=== PATIENT | male | born 1940 | race Caucasian/White ===

== ENCOUNTER 2017-10-21 09:18 | Inpatient (IN) | payer OTHER ==
[2017-10-21] MEDS ORDERED: SODIUM CHLORIDE 0.9% FLUSH 10 ML SOL IV PRN (09:23)
[2017-10-21 09:32] LABS: BASOPHILS % (AUTO) 1 % (0-3); EOSINOPHILS % (AUTO) 4 % (0-9); HEMATOCRIT 43 % (39-53); LYMPHOCYTES % (AUTO) 12.77 % (10-50); MEAN CORPUSCULAR HGB CONC 32.7 gm/dl (32.0-36.0); MEAN CORPUSCULAR VOLUME 98 fL (80-100); MONOCYTES % (AUTO) 7.1 % (0-12); NEUTROPHILS % (AUTO) 74.9 % (37-80)
[2017-10-21 09:37] LABS: CALCIUM 8.6 mg/dl (8.5-10.1); CARBON DIOXIDE 29.4 mEq/L (21-32); CREATININE 1.4 mg/dl (0.80-1.30); POTASSIUM 4.1 mMol/L (3.5-5.1)
[2017-10-21 09:47] LABS: ABG PH 7.4 (7.35-7.45)
[2017-10-21 13:07] LABS: ABG PH 7.35 (7.35-7.45)
[2017-10-21] MEDS ORDERED: SODIUM CHLORIDE 0.9% 1000ML 1,000 ML IV SCH (13:15)
[2017-10-21 14:15] LABS: ABG PH 7.42 (7.35-7.45)
[2017-10-21 15:27] LABS: ABG PH 7.4 (7.35-7.45)
[2017-10-21] MEDS: BUDESONIDE 0.5 MG/2 ML AMPUL.NEB INH SCH (20:13)
[2017-10-21] MEDS: ALBUTEROL/IPRATROPIUM 1 VIAL SOL INH SCH (20:20)
[2017-10-21] MEDS: SODIUM CHLORIDE 0.9% 1000ML 1,000 ML IV SCH (23:10)
[2017-10-22] MEDS ORDERED: ACETAMINOPHEN 325 MG PO PRN (00:10)
[2017-10-22 07:18] LABS: CALCIUM 8.3 mg/dl (8.5-10.1); CREATININE 1.24 mg/dl (0.80-1.30); POTASSIUM 3.9 mMol/L (3.5-5.1)
[2017-10-22 07:27] LABS: BASOPHILS % (AUTO) 1 % (0-3); EOSINOPHILS % (AUTO) 1 % (0-9); HEMATOCRIT 42 % (39-53); HEMOGLOBIN 13.5 gm/dl (13.5-17.7); MEAN CORPUSCULAR HGB CONC 32.5 gm/dl (32.0-36.0); MONOCYTES % (AUTO) 6.4 % (0-12)
[2017-10-22 07:29] LABS: MEAN CORPUSCULAR VOLUME 99 fL (80-100)
[2017-10-22] MEDS: SODIUM CHLORIDE 0.9% 1000ML 1,000 ML IV SCH (07:56)
[2017-10-22] MEDS: BUDESONIDE 0.5 MG/2 ML AMPUL.NEB INH SCH ×2 (09:00→20:13)
[2017-10-22] MEDS: ALBUTEROL/IPRATROPIUM 1 VIAL SOL INH SCH ×2 (09:17→20:17)
[2017-10-22] MEDS: GLIMEPIRIDE 2 MG TAB PO SCH (09:38)
[2017-10-22] MEDS: DIVALPROEX 250 MG TAB.ER.24H PO SCH (09:38)
[2017-10-22] MEDS: MONTELUKAST SODIUM 10 MG TAB PO SCH (09:38)
[2017-10-23 08:07] VITALS: BP 154/81; RESP 18
[2017-10-23 09:21] VITALS: TEMP 97.7
[2017-10-23] MEDS: GLIMEPIRIDE 2 MG TAB PO SCH (09:44)
[2017-10-23] MEDS: ALBUTEROL/IPRATROPIUM 1 VIAL SOL INH SCH (09:44)
[2017-10-23] MEDS: MONTELUKAST SODIUM 10 MG TAB PO SCH (09:44)
[2017-10-23] MEDS: DIVALPROEX 250 MG TAB.ER.24H PO SCH (09:44)
[2017-10-23] MEDS: BUDESONIDE 0.5 MG/2 ML AMPUL.NEB INH SCH (09:58)
[2017-10-23 10:10] VITALS: PULSE 74; O2SAT 95
== END 2017-10-23 11:15 | disposition home or self-care (01) | DRG 918 ==
LOC: ED 09:18 → ACUTE CARE 11:44 → OBSVTOIN 12:45
PROVIDERS: ADMIT Family Medicine; ATTEND Family Medicine
PROC: F00ZHZZ Bedside Swallowing and Oral Function Assessment (ICD-10-PCS; principal; 2017-10-23)
DX: R47.81 Slurred speech (principal); T42.6X1A Poisoning by other antiepileptic and sedative-hypnotic drugs, accidental (unintentional), initial encounter; R41.82 Altered mental status, unspecified; R40.2132 Coma scale, eyes open, to sound, at arrival to emergency department; R40.2362 Coma scale, best motor response, obeys commands, at arrival to emergency department; I10 Essential (primary) hypertension; E11.9 Type 2 diabetes mellitus without complications
CPT/HCPCS: 36415; 36600; 51798; 70450; 80048; 82803; 82962; 85025; 85610; 93005; 93012; 94640; 94762; 99283; 99284; A9270-GY

== ENCOUNTER 2018-09-01 10:57 | Inpatient (IN) | payer MEDICARE, OTHER ==
[2018-09-01 11:37] LABS: BASOPHILS % (AUTO) 1 % (0-3); EOSINOPHILS % (AUTO) 0 % (0-9); HEMATOCRIT 36 % (39-53); HEMOGLOBIN 11.9 gm/dl (13.5-17.7); LYMPHOCYTES % (AUTO) 3.9 % (10-50); MEAN CORPUSCULAR HEMOGLOBIN 31.7 pg (27.0-32.0); MEAN CORPUSCULAR HGB CONC 33.1 gm/dl (32.0-36.0); MEAN CORPUSCULAR VOLUME 96 fL (80-100); MONOCYTES % (AUTO) 8.1 % (0-12); NEUTROPHILS % (AUTO) 87.2 % (37-80)
[2018-09-01 11:59] LABS: ALBUMIN 2.3 gm/dl (3.4-5.0); ALKALINE PHOSPHATASE 106 IU/L (46-116); ALT 25 IU/L (14-63); AST 21 IU/L (15-37); BILIRUBIN,TOTAL 0.4 mg/dl (0.2-1.0); BLOOD UREA NITROGEN 35 mg/dl (7-18); CALCIUM 8.9 mg/dl (8.5-10.1); CARBON DIOXIDE 27.7 mEq/L (21-32); CHLORIDE 101 mMol/L (98-107); CREATININE 1.43 mg/dl (0.80-1.30); GLUCOSE 131 mg/dl (74-106); POTASSIUM 4.3 mMol/L (3.5-5.1); SODIUM 138 mMol/L (136-145); TROP I < 0.017 ng/ml (0.000-0.056)
[2018-09-01] MEDS ORDERED: ALBUTEROL/IPRATROPIUM 1 VIAL SOL INH ONE (12:31)
[2018-09-01] MEDS ORDERED: PIPERACILLIN/TAZOBACT 3.375 GM 3.375 GM in SODIUM CHLORIDE 0.9% 100 ML 100 ML IV ONE (12:31)
[2018-09-01] MEDS ORDERED: PIPERACILLIN/TAZOBACT 3.375 GM PDS IV ONE ×2 (12:41→21:07)
[2018-09-01] MEDS ORDERED: ALBUTEROL/IPRATROPIUM 1 VIAL SOL ONE (12:42)
[2018-09-01] MEDS ORDERED: TDAP VACCINE 0.5 ML SUS IM ONE ×2 (12:52→13:06)
[2018-09-01] MEDS ORDERED: ALBUTEROL NEB SOL 2.5MG/3ML 1 VIAL SOL NEB PRN (20:52)
[2018-09-01] MEDS ORDERED: NUTRITIONAL SUPPLEMENT PO SCH (21:00)
[2018-09-01] MEDS ORDERED: VANCOMYCIN HYDROCHLORIDE 500 MG PDS IV ONE (21:07)
[2018-09-01] MEDS ORDERED: SODIUM CHLORIDE 0.9% 100 ML 100 ML IV ONE (21:07)
[2018-09-01] MEDS: SODIUM CHLORIDE 0.9% FLUSH 10 ML SOL IV SCH (21:29)
[2018-09-01] MEDS: PIPERACILLIN/TAZOBACT 3.375 GM 3.375 GM in SODIUM CHLORIDE 0.9% 100 ML 100 ML IV SCH (21:29)
[2018-09-01] MEDS: ALBUTEROL/IPRATROPIUM 1 VIAL SOL INH SCH (21:32)
[2018-09-01] MEDS: ACETAMINOPHEN 500 MG 500 MG TAB PO SCH (21:32)
[2018-09-01] MEDS: BUDESONIDE 0.5 MG/2 ML AMPUL.NEB IH SCH (21:38)
[2018-09-01] MEDS: VANCOMYCIN HCL 500 MG PDS 500 MG in SODIUM CHLORIDE 0.9% 100 ML 100 ML IV SCH (22:05)
[2018-09-02 01:57] LABS: APPEARANCE,URINE Slightly Cloudy; BILIRUBIN,URINE 1+ (NEGATIVE); COLOR,URINE Yellow; GLUCOSE, URINE (UA) NEGATIVE (NEGATIVE); KETONES,URINE TRACE (NEGATIVE); LEUKOCYTE ESTERASE ,URINE NEGATIVE (NEGATIVE); NITRATE,URINE NEGATIVE (NEGATIVE); OCCULT BLOOD,URINE TRACE INTACT (NEG-TRACE); PH,URINE 5.5; UROBILINOGEN,URINE 0.2 (0.2-1.0 EU)
[2018-09-02 02:10] LABS: BACTERIA NEGATIVE (< 1+); CRYSTALS NEGATIVE (0-3 AVE/HPF); EPITHELIAL CELLS 0-3 (SQUAMOUS); ICTOTEST,URINE NEGATIVE (NEGATIVE); RBC,URINE 0-1 (0-3AV/HPF); WBC,URINE 0-1 (0-5AV/HPF)
[2018-09-02] MEDS ORDERED: PIPERACILLIN/TAZOBACT 3.375 GM PDS IV ONE ×4 (02:54→21:40)
[2018-09-02] MEDS ORDERED: SODIUM CHLORIDE 0.9% 100 ML 100 ML IV ONE ×6 (02:54→22:20)
[2018-09-02] MEDS: ALBUTEROL/IPRATROPIUM 1 VIAL SOL INH SCH ×4 (03:20→21:51)
[2018-09-02] MEDS: PIPERACILLIN/TAZOBACT 3.375 GM 3.375 GM in SODIUM CHLORIDE 0.9% 100 ML 100 ML IV SCH ×4 (03:20→21:49)
[2018-09-02] MEDS: SODIUM CHLORIDE 0.9% FLUSH 10 ML SOL IV SCH ×3 (03:20→21:51)
[2018-09-02] MEDS ORDERED: PHARMACOKINETICS 1 MISC PRN (05:04)
[2018-09-02 07:22] LABS: BASOPHILS % (AUTO) 2 % (0-3); EOSINOPHILS % (AUTO) 1 % (0-9); HEMATOCRIT 36 % (39-53); HEMOGLOBIN 11.8 gm/dl (13.5-17.7); MEAN CORPUSCULAR HEMOGLOBIN 32.2 pg (27.0-32.0); MEAN CORPUSCULAR HGB CONC 33.2 gm/dl (32.0-36.0); MEAN CORPUSCULAR VOLUME 97 fL (80-100); MONOCYTES % (AUTO) 8.2 % (0-12); NEUTROPHILS % (AUTO) 82.7 % (37-80)
[2018-09-02 07:33] LABS: BLOOD UREA NITROGEN 39 mg/dl (7-18); CALCIUM 8.9 mg/dl (8.5-10.1); CARBON DIOXIDE 32.6 mEq/L (21-32); CHLORIDE 102 mMol/L (98-107); GLUCOSE 136 mg/dl (74-106); POTASSIUM 4.4 mMol/L (3.5-5.1); SODIUM 140 mMol/L (136-145); TROP I < 0.017 ng/ml (0.000-0.056)
[2018-09-02] MEDS ORDERED: Non-Formulary Medication MISC (Divalproex Sodium 1,000 mg) PO SCH (09:00)
[2018-09-02] MEDS ORDERED: FLUTICASONE PROPIONATE INH SCH (09:00)
[2018-09-02] MEDS ORDERED: OMEPRAZOLE 20 MG CAPSULE PO SCH (09:00)
[2018-09-02] MEDS ORDERED: VANCOMYCIN HYDROCHLORIDE 500 MG PDS IV ONE ×2 (09:03→22:20)
[2018-09-02] MEDS: ACETAMINOPHEN 500 MG 500 MG TAB PO SCH ×2 (09:06→21:50)
[2018-09-02] MEDS: FLUOXETINE HYDROCHLORIDE 10 MG CAP PO SCH (09:07)
[2018-09-02] MEDS: HYDROCHLOROTHIAZIDE 25 MG TAB PO SCH (09:07)
[2018-09-02] MEDS: LOSARTAN POTASSIUM 50 MG TAB PO SCH (09:07)
[2018-09-02] MEDS: DOCUSATE SODIUM 100 MG SGL PO SCH (09:07)
[2018-09-02] MEDS: PRAVASTATIN SODIUM 20 MG TAB PO SCH (09:07)
[2018-09-02] MEDS: MONTELUKAST SODIUM 10 MG TAB PO SCH (09:07)
[2018-09-02] MEDS: PANTOPRAZOLE SODIUM 40 MG ECT PO SCH (09:07)
[2018-09-02] MEDS: TAMSULOSIN HYDROCHLORIDE 0.4 MG CAP PO SCH (09:07)
[2018-09-02] MEDS: GLIMEPIRIDE 2 MG TAB PO SCH (09:07)
[2018-09-02] MEDS: ENOXAPARIN 80 MG SOL SC SCH (09:08)
[2018-09-02] MEDS: VANCOMYCIN HCL 500 MG PDS 500 MG in SODIUM CHLORIDE 0.9% 100 ML 100 ML IV SCH ×2 (10:00→22:28)
[2018-09-02] MEDS: BUDESONIDE 0.5 MG/2 ML AMPUL.NEB IH SCH ×2 (10:00→21:49)
[2018-09-02] MEDS: DIVALPROEX 250 MG TAB.ER.24H PO SCH (10:48)
[2018-09-02] MEDS: DUTASTERIDE 0.5 MG SGL PO SCH (10:48)
[2018-09-02] MEDS: FLUTICASONE PROPIONATE SPR NAS SCH (14:12)
[2018-09-03] MEDS ORDERED: SODIUM CHLORIDE 0.9% 100 ML 100 ML IV ONE ×6 (03:07→16:11)
[2018-09-03] MEDS ORDERED: PIPERACILLIN/TAZOBACT 3.375 GM PDS IV ONE ×4 (03:07→16:09)
[2018-09-03] MEDS: ALBUTEROL/IPRATROPIUM 1 VIAL SOL INH SCH ×4 (03:15→20:19)
[2018-09-03] MEDS: SODIUM CHLORIDE 0.9% FLUSH 10 ML SOL IV SCH ×7 (03:17→20:25)
[2018-09-03] MEDS: PIPERACILLIN/TAZOBACT 3.375 GM 3.375 GM in SODIUM CHLORIDE 0.9% 100 ML 100 ML IV SCH ×4 (03:19→20:24)
[2018-09-03 07:19] LABS: CALCIUM 8.5 mg/dl (8.5-10.1); CARBON DIOXIDE 28.3 mEq/L (21-32); CREATININE 1.52 mg/dl (0.80-1.30); POTASSIUM 3.8 mMol/L (3.5-5.1)
[2018-09-03 07:30] LABS: BASOPHILS % (AUTO) 1 % (0-3); EOSINOPHILS % (AUTO) 1 % (0-9); HEMATOCRIT 33 % (39-53); HEMOGLOBIN 10.9 gm/dl (13.5-17.7); LYMPHOCYTES % (AUTO) 4.8 % (10-50); MEAN CORPUSCULAR HEMOGLOBIN 31.9 pg (27.0-32.0); MEAN CORPUSCULAR HGB CONC 32.8 gm/dl (32.0-36.0); MEAN CORPUSCULAR VOLUME 97 fL (80-100); MONOCYTES % (AUTO) 8.8 % (0-12); NEUTROPHILS % (AUTO) 84.2 % (37-80)
[2018-09-03] MEDS ORDERED: MAGNESIUM HYDROXIDE 30 ML SUS PO PRN (08:33)
[2018-09-03] MEDS ORDERED: SENNOSIDES A AND B 8.6 MG TAB PO ONE (08:33)
[2018-09-03] MEDS ORDERED: ACETAMINOPHEN 500 MG 500 MG TAB PO SCH (09:00)
[2018-09-03] MEDS ORDERED: ACETAMINOPHEN 325 MG PO SCH (09:00)
[2018-09-03] MEDS: ENOXAPARIN 80 MG SOL SC SCH (09:11)
[2018-09-03] MEDS: DOCUSATE SODIUM 100 MG SGL PO SCH (09:14)
[2018-09-03] MEDS: FLUOXETINE HYDROCHLORIDE 10 MG CAP PO SCH (09:15)
[2018-09-03] MEDS: ACETAMINOPHEN 500 MG 500 MG TAB PO SCH ×2 (09:15→20:19)
[2018-09-03] MEDS: DIVALPROEX 250 MG TAB.ER.24H PO SCH (09:15)
[2018-09-03] MEDS: PRAVASTATIN SODIUM 20 MG TAB PO SCH (09:16)
[2018-09-03] MEDS: LOSARTAN POTASSIUM 50 MG TAB PO SCH (09:16)
[2018-09-03] MEDS: HYDROCHLOROTHIAZIDE 25 MG TAB PO SCH (09:16)
[2018-09-03] MEDS: GLIMEPIRIDE 2 MG TAB PO SCH (09:16)
[2018-09-03] MEDS: TAMSULOSIN HYDROCHLORIDE 0.4 MG CAP PO SCH (09:17)
[2018-09-03] MEDS: PANTOPRAZOLE SODIUM 40 MG ECT PO SCH (09:17)
[2018-09-03] MEDS: DUTASTERIDE 0.5 MG SGL PO SCH (09:18)
[2018-09-03] MEDS: MONTELUKAST SODIUM 10 MG TAB PO SCH (09:18)
[2018-09-03] MEDS ORDERED: VANCOMYCIN HYDROCHLORIDE 500 MG PDS IV ONE ×2 (09:30→16:11)
[2018-09-03] MEDS: BUDESONIDE 0.5 MG/2 ML AMPUL.NEB IH SCH ×2 (09:42→20:25)
[2018-09-03] MEDS: VANCOMYCIN HCL 500 MG PDS 500 MG in SODIUM CHLORIDE 0.9% 100 ML 100 ML IV SCH ×2 (09:57→21:22)
[2018-09-03] MEDS: FLUTICASONE PROPIONATE SPR NAS SCH (10:31)
[2018-09-03] MEDS: APAP/HYDROCODONE 1 EACH TABLET PO PRN (16:02)
[2018-09-04] MEDS ORDERED: SODIUM CHLORIDE 0.9% 100 ML 100 ML IV ONE ×3 (04:17→09:33)
[2018-09-04] MEDS ORDERED: PIPERACILLIN/TAZOBACT 3.375 GM PDS IV ONE ×2 (04:17→09:03)
[2018-09-04] MEDS: ALBUTEROL/IPRATROPIUM 1 VIAL SOL INH SCH ×2 (04:26→08:58)
[2018-09-04] MEDS: PIPERACILLIN/TAZOBACT 3.375 GM 3.375 GM in SODIUM CHLORIDE 0.9% 100 ML 100 ML IV SCH ×2 (04:26→09:12)
[2018-09-04] MEDS: SODIUM CHLORIDE 0.9% FLUSH 10 ML SOL IV SCH ×4 (04:26→11:56)
[2018-09-04 07:44] LABS: BASOPHILS % (AUTO) 1 % (0-3); EOSINOPHILS % (AUTO) 2 % (0-9); HEMATOCRIT 35 % (39-53); HEMOGLOBIN 11.4 gm/dl (13.5-17.7); LYMPHOCYTES % (AUTO) 7.9 % (10-50); MEAN CORPUSCULAR HEMOGLOBIN 31.8 pg (27.0-32.0); MEAN CORPUSCULAR HGB CONC 32.3 gm/dl (32.0-36.0); MEAN CORPUSCULAR VOLUME 98 fL (80-100); NEUTROPHILS % (AUTO) 81.1 % (37-80)
[2018-09-04 08:12] VITALS: BP 167/78; TEMP 97.5; O2SAT 93
[2018-09-04 08:20] LABS: POTASSIUM 3.8 mMol/L (3.5-5.1)
[2018-09-04 08:21] LABS: CALCIUM 8.6 mg/dl (8.5-10.1); CREATININE 1.45 mg/dl (0.80-1.30)
[2018-09-04] MEDS: GLIMEPIRIDE 2 MG TAB PO SCH (08:51)
[2018-09-04] MEDS: FLUOXETINE HYDROCHLORIDE 10 MG CAP PO SCH (08:53)
[2018-09-04] MEDS: LOSARTAN POTASSIUM 50 MG TAB PO SCH (08:53)
[2018-09-04] MEDS: PANTOPRAZOLE SODIUM 40 MG ECT PO SCH (08:53)
[2018-09-04] MEDS: TAMSULOSIN HYDROCHLORIDE 0.4 MG CAP PO SCH (08:54)
[2018-09-04] MEDS: HYDROCHLOROTHIAZIDE 25 MG TAB PO SCH (08:54)
[2018-09-04] MEDS: DIVALPROEX 250 MG TAB.ER.24H PO SCH (08:55)
[2018-09-04] MEDS: DUTASTERIDE 0.5 MG SGL PO SCH (08:56)
[2018-09-04] MEDS: PRAVASTATIN SODIUM 20 MG TAB PO SCH (08:57)
[2018-09-04] MEDS: DOCUSATE SODIUM 100 MG SGL PO SCH (08:57)
[2018-09-04] MEDS: MONTELUKAST SODIUM 10 MG TAB PO SCH (08:57)
[2018-09-04] MEDS: BUDESONIDE 0.5 MG/2 ML AMPUL.NEB IH SCH (08:58)
[2018-09-04] MEDS: ACETAMINOPHEN 500 MG 500 MG TAB PO SCH (09:01)
[2018-09-04] MEDS: ENOXAPARIN 80 MG SOL SC SCH (09:07)
[2018-09-04 09:24] VITALS: PULSE 76; RESP 24
[2018-09-04] MEDS ORDERED: VANCOMYCIN HYDROCHLORIDE 500 MG PDS IV ONE (09:33)
[2018-09-04] MEDS: VANCOMYCIN HCL 500 MG PDS 500 MG in SODIUM CHLORIDE 0.9% 100 ML 100 ML IV SCH (09:49)
[2018-09-04] MEDS: APAP/HYDROCODONE 1 EACH TABLET PO PRN ×2 (10:06→14:25)
[2018-09-04] MEDS: FLUTICASONE PROPIONATE SPR NAS SCH (10:09)
== END 2018-09-04 14:30 | disposition other institution (70) | DRG 555 ==
LOC: ED 10:57 → UNDOADMIN 14:26 → ACUTE CARE 14:26
PROVIDERS: ADMIT Internal Medicine; ATTEND Internal Medicine
PROC: F01ZBZZ Bed Mobility Assessment (ICD-10-PCS; principal; 2018-09-02)
PROC: F01ZCFZ Transfer Assessment using Assistive, Adaptive, Supportive or Protective Equipment (ICD-10-PCS; 2018-09-02)
PROC: F01K5ZZ Range of Motion and Joint Integrity Assessment of Musculoskeletal System - Upper Back / Upper Extremity (ICD-10-PCS; 2018-09-03)
PROC: F01K0ZZ Muscle Performance Assessment of Musculoskeletal System - Upper Back / Upper Extremity (ICD-10-PCS; 2018-09-03)
DX: M25.552 Pain in left hip (principal); J18.9 Pneumonia, unspecified organism; J44.1 Chronic obstructive pulmonary disease with (acute) exacerbation; S22.080A Wedge compression fracture of T11-T12 vertebra, initial encounter for closed fracture; M54.2 Cervicalgia; I50.9 Heart failure, unspecified; E11.9 Type 2 diabetes mellitus without complications; R06.02 Shortness of breath; I10 Essential (primary) hypertension; F17.210 Nicotine dependence, cigarettes, uncomplicated
CPT/HCPCS: 36415; 70450; 71045; 71275; 72125; 73521; 80048; 80053; 81001; 82962; 83880; 84484; 85025; 85378; 87040; 90471; 90715; 93005; 94150; 96365; 99223; 99285; J1650; J2543; J3370; J7613; Q9967; A9270-GY

== ENCOUNTER 2018-10-14 10:22 | Inpatient (IN) | payer OTHER ==
[2018-10-14] MEDS ORDERED: PIPERACILLIN/TAZOBACT 3.375 GM PDS IV ONE ×4 (11:05→19:39)
[2018-10-14] MEDS ORDERED: SODIUM CHLORIDE 0.9% 100 ML 100 ML IV ONE ×4 (11:07→19:39)
[2018-10-14] MEDS: SODIUM CHLORIDE 0.9% 1000ML 1,000 ML IV SCH ×2 (11:26→21:53)
[2018-10-14] MEDS: SODIUM CHLORIDE 0.9% FLUSH 10 ML SOL IV SCH ×2 (11:26→18:40)
[2018-10-14] MEDS: PIPERACILLIN/TAZOBACT 3.375 GM 2.25 GM in SODIUM CHLORIDE 0.9% 100 ML 100 ML IV SCH ×3 (11:28→23:01)
[2018-10-14] MEDS ORDERED: LEVOFLOXACIN 25 MG/ML 750 MG in SODIUM CHLORIDE 0.9% 250 ML 150 ML IV SCH (12:00)
[2018-10-14] MEDS ORDERED: LEVOFLOXACIN 25 MG/ML SOL IV ONE (12:08)
[2018-10-14] MEDS ORDERED: SODIUM CHLORIDE 0.9% 250 ML 250 ML IV ONE (12:08)
[2018-10-14] MEDS: ALBUTEROL/IPRATROPIUM 1 VIAL SOL INH SCH ×3 (13:36→21:01)
[2018-10-14] MEDS: DIVALPROEX 250 MG TAB.ER.24H PO SCH (13:48)
[2018-10-14] MEDS: ACETAMINOPHEN 500 MG 500 MG TAB PO SCH (21:00)
[2018-10-14] MEDS: IPRATROPIUM BROMIDE NS SCH (21:00)
[2018-10-14] MEDS: MONTELUKAST SODIUM 10 MG TAB PO SCH (21:00)
[2018-10-14] MEDS: TAMSULOSIN HYDROCHLORIDE 0.4 MG CAP PO SCH (21:00)
[2018-10-14] MEDS: BUDESONIDE 0.5 MG/2 ML AMPUL.NEB INH SCH (21:01)
[2018-10-15] MEDS ORDERED: LIDOCAINE HCL 2% GEL TOP ONE (02:00)
[2018-10-15] MEDS: SODIUM CHLORIDE 0.9% FLUSH 10 ML SOL IV SCH ×3 (03:43→17:40)
[2018-10-15] MEDS: PIPERACILLIN/TAZOBACT 3.375 GM 2.25 GM in SODIUM CHLORIDE 0.9% 100 ML 100 ML IV SCH ×4 (05:36→23:35)
[2018-10-15 07:28] LABS: CALCIUM 8.4 mg/dl (8.5-10.1); CARBON DIOXIDE 28.7 mEq/L (21-32); CREATININE 1.69 mg/dl (0.80-1.30); POTASSIUM 3.6 mMol/L (3.5-5.1)
[2018-10-15 07:32] LABS: BASOPHILS % (AUTO) 1 % (0-3); EOSINOPHILS % (AUTO) 2 % (0-9); HEMATOCRIT 32 % (39-53); HEMOGLOBIN 10.5 gm/dl (13.5-17.7); LYMPHOCYTES % (AUTO) 12.4 % (10-50); MEAN CORPUSCULAR HEMOGLOBIN 31.9 pg (27.0-32.0); MEAN CORPUSCULAR VOLUME 97 fL (80-100); MONOCYTES % (AUTO) 11.7 % (0-12); NEUTROPHILS % (AUTO) 72.3 % (37-80)
[2018-10-15] MEDS: SODIUM CHLORIDE 0.9% 1000ML 1,000 ML IV SCH ×3 (07:41→22:29)
[2018-10-15] MEDS ORDERED: FLUTICASONE PROPIONATE INH SCH (09:00)
[2018-10-15] MEDS ORDERED: OMEPRAZOLE 20 MG CAPSULE PO SCH (09:00)
[2018-10-15] MEDS: ACETAMINOPHEN 500 MG 500 MG TAB PO SCH ×2 (09:23→20:09)
[2018-10-15] MEDS: HYDROCHLOROTHIAZIDE 25 MG TAB PO SCH (09:24)
[2018-10-15] MEDS: PRAVASTATIN SODIUM 20 MG TAB PO SCH (09:24)
[2018-10-15] MEDS: LOSARTAN POTASSIUM 50 MG TAB PO SCH (09:24)
[2018-10-15] MEDS: MULTIVITAMIN2 1 EA TAB PO SCH (09:24)
[2018-10-15] MEDS: FLUOXETINE HYDROCHLORIDE 10 MG CAP PO SCH (09:24)
[2018-10-15] MEDS: DOCUSATE SODIUM 100 MG SGL PO SCH (09:25)
[2018-10-15] MEDS: GLIMEPIRIDE 2 MG TAB PO SCH (09:25)
[2018-10-15] MEDS: PANTOPRAZOLE SODIUM 40 MG ECT PO SCH (09:26)
[2018-10-15] MEDS: ALBUTEROL/IPRATROPIUM 1 VIAL SOL INH SCH ×4 (09:29→20:12)
[2018-10-15] MEDS: BUDESONIDE 0.5 MG/2 ML AMPUL.NEB INH SCH ×2 (09:31→20:13)
[2018-10-15] MEDS ORDERED: PIPERACILLIN/TAZOBACT 3.375 GM PDS IV ONE ×3 (11:16→22:31)
[2018-10-15] MEDS ORDERED: SODIUM CHLORIDE 0.9% 100 ML 100 ML IV ONE ×3 (11:16→22:31)
[2018-10-15] MEDS: IPRATROPIUM BROMIDE NS SCH ×2 (14:18→20:08)
[2018-10-15] MEDS: DUTASTERIDE 0.5 MG SGL PO SCH (14:20)
[2018-10-15] MEDS: DIVALPROEX 250 MG TAB.ER.24H PO SCH (14:20)
[2018-10-15] MEDS: FLUTICASONE PROPIONATE SPR NAS SCH (14:20)
[2018-10-15] MEDS: NUTRITIONAL SUPPLEMENT PO SCH ×3 (14:42→20:09)
[2018-10-15] MEDS: TAMSULOSIN HYDROCHLORIDE 0.4 MG CAP PO SCH (20:08)
[2018-10-15] MEDS: MONTELUKAST SODIUM 10 MG TAB PO SCH (20:09)
[2018-10-16] MEDS: SODIUM CHLORIDE 0.9% FLUSH 10 ML SOL IV SCH ×2 (02:45→11:19)
[2018-10-16] MEDS ORDERED: MAGNESIUM HYDROXIDE 30 ML SUS PO ONE (03:33)
[2018-10-16] MEDS ORDERED: PIPERACILLIN/TAZOBACT 3.375 GM PDS IV ONE (04:47)
[2018-10-16] MEDS ORDERED: SODIUM CHLORIDE 0.9% 100 ML 100 ML IV ONE (04:47)
[2018-10-16] MEDS: SODIUM CHLORIDE 0.9% 1000ML 1,000 ML IV SCH (05:29)
[2018-10-16] MEDS: PIPERACILLIN/TAZOBACT 3.375 GM 2.25 GM in SODIUM CHLORIDE 0.9% 100 ML 100 ML IV SCH (05:30)
[2018-10-16 07:22] LABS: CALCIUM 7.7 mg/dl (8.5-10.1); CARBON DIOXIDE 30.5 mEq/L (21-32); CREATININE 1.09 mg/dl (0.80-1.30); POTASSIUM 3.2 mMol/L (3.5-5.1)
[2018-10-16 07:23] LABS: BASOPHILS % (AUTO) 2 % (0-3); EOSINOPHILS % (AUTO) 4 % (0-9); HEMATOCRIT 30 % (39-53); HEMOGLOBIN 10.1 gm/dl (13.5-17.7); LYMPHOCYTES % (AUTO) 12.1 % (10-50); MEAN CORPUSCULAR HGB CONC 33.1 gm/dl (32.0-36.0); MEAN CORPUSCULAR VOLUME 96 fL (80-100); MONOCYTES % (AUTO) 11.1 % (0-12)
[2018-10-16 08:25] VITALS: BP 119/62; TEMP 98
[2018-10-16] MEDS: FLUOXETINE HYDROCHLORIDE 10 MG CAP PO SCH (08:34)
[2018-10-16] MEDS: DUTASTERIDE 0.5 MG SGL PO SCH (08:34)
[2018-10-16] MEDS: ACETAMINOPHEN 500 MG 500 MG TAB PO SCH (08:34)
[2018-10-16] MEDS: GLIMEPIRIDE 2 MG TAB PO SCH (08:35)
[2018-10-16] MEDS: MULTIVITAMIN2 1 EA TAB PO SCH (08:35)
[2018-10-16] MEDS: PRAVASTATIN SODIUM 20 MG TAB PO SCH (08:36)
[2018-10-16] MEDS: PANTOPRAZOLE SODIUM 40 MG ECT PO SCH (08:36)
[2018-10-16] MEDS: HYDROCHLOROTHIAZIDE 25 MG TAB PO SCH (08:36)
[2018-10-16] MEDS: LOSARTAN POTASSIUM 50 MG TAB PO SCH (08:36)
[2018-10-16] MEDS: DOCUSATE SODIUM 100 MG SGL PO SCH (08:36)
[2018-10-16] MEDS: FLUTICASONE PROPIONATE SPR NAS SCH (08:37)
[2018-10-16] MEDS: NUTRITIONAL SUPPLEMENT PO SCH (08:37)
[2018-10-16] MEDS: BUDESONIDE 0.5 MG/2 ML AMPUL.NEB INH SCH (08:37)
[2018-10-16] MEDS: ALBUTEROL/IPRATROPIUM 1 VIAL SOL INH SCH (08:37)
[2018-10-16] MEDS: IPRATROPIUM BROMIDE NS SCH (08:38)
[2018-10-16] MEDS: POTASSIUM CHLORIDE 10 MEQ TER PO SCH ×2 (09:22→11:19)
[2018-10-16 09:23] VITALS: PULSE 78; RESP 18; O2SAT 95
== END 2018-10-16 11:15 | disposition home health service (06) | DRG 195 ==
LOC: ACUTE CARE 10:28
PROVIDERS: ADMIT Family Medicine; ATTEND Family Medicine
PROC: F01ZDFZ Gait and/or Balance Assessment using Assistive, Adaptive, Supportive or Protective Equipment (ICD-10-PCS; principal; 2018-10-15)
PROC: F01ZBFZ Bed Mobility Assessment using Assistive, Adaptive, Supportive or Protective Equipment (ICD-10-PCS; 2018-10-15)
PROC: F02Z0ZZ Bathing/Showering Assessment (ICD-10-PCS; 2018-10-15)
PROC: F02Z3FZ Grooming/Personal Hygiene Assessment using Assistive, Adaptive, Supportive or Protective Equipment (ICD-10-PCS; 2018-10-15)
DX: J18.1 Lobar pneumonia, unspecified organism (principal); N28.9 Disorder of kidney and ureter, unspecified; R53.1 Weakness; E11.9 Type 2 diabetes mellitus without complications; R06.02 Shortness of breath; R26.81 Unsteadiness on feet; R10.9 Unspecified abdominal pain; J43.9 Emphysema, unspecified; I10 Essential (primary) hypertension; R33.9 Retention of urine, unspecified
CPT/HCPCS: 36415; 80048; 82962; 85025; 87040; 94150; 94640; 99070; J1956; J2543; A9270-GY

== ENCOUNTER 2018-10-18 18:38 | Emergency (ER) | payer OTHER ==
[2018-10-18 19:46] VITALS: TEMP 98.4
[2018-10-18 20:42] LABS: APPEARANCE,URINE Clear; BILIRUBIN,URINE NEGATIVE (NEGATIVE); COLOR,URINE Yellow; GLUCOSE, URINE (UA) NEGATIVE (NEGATIVE); KETONES,URINE NEGATIVE (NEGATIVE); LEUKOCYTE ESTERASE ,URINE NEGATIVE (NEGATIVE); NITRATE,URINE NEGATIVE (NEGATIVE); OCCULT BLOOD,URINE 3+ (NEG-TRACE); PH,URINE 7.5; UROBILINOGEN,URINE 0.2 (0.2-1.0 EU)
[2018-10-18 20:43] LABS: HEMATOCRIT 34 % (39-53); HEMOGLOBIN 11.2 gm/dl (13.5-17.7); MEAN CORPUSCULAR HEMOGLOBIN 32.2 pg (27.0-32.0); MEAN CORPUSCULAR HGB CONC 33.4 gm/dl (32.0-36.0); MEAN CORPUSCULAR VOLUME 96 fL (80-100)
[2018-10-18 20:49] LABS: ALBUMIN 2.6 gm/dl (3.4-5.0); BILIRUBIN,TOTAL 0.3 mg/dl (0.2-1.0); CALCIUM 8.3 mg/dl (8.5-10.1); CARBON DIOXIDE 27.1 mEq/L (21-32); CREATININE 1.35 mg/dl (0.80-1.30); POTASSIUM 3.4 mMol/L (3.5-5.1); TOTAL PROTEIN 6.3 gm/dl (6.4-8.2)
[2018-10-18 20:59] LABS: BACTERIA 1+ (< 1+); CRYSTALS NEGATIVE (0-3 AVE/HPF); RBC,URINE 40-50 (0-3AV/HPF)
[2018-10-18 21:09] LABS: BAND NEUTROPHILS % (MANUAL) 7 %; BASOPHILS % (MANUAL) 0 % (0-3); EOSINOPHILS % (MANUAL) 0 % (0-9); LYMPHOCYTES % (MANUAL) 15 % (10-50); MONOCYTES % (MANUAL) 2 % (0-12); NEUTROPHILS % (MANUAL) 76 % (37-80)
[2018-10-18 21:10] LABS: NORMAL RBCS PRESENT
[2018-10-18 21:41] VITALS: BP 133/67; PULSE 76; RESP 18; O2SAT 95
== END 2018-10-18 21:33 | disposition home health service (06) | DRG 700 ==
LOC: ED 18:38
DX: T83.011A Breakdown (mechanical) of indwelling urethral catheter, initial encounter (principal)
CPT/HCPCS: 36415; 51798; 80053; 81001; 85007; 85027; 99283

== ENCOUNTER 2018-11-23 11:58 | Emergency (ER) | payer OTHER ==
[2018-11-23 13:50] VITALS: BP 142/68; PULSE 78; RESP 16; TEMP 97.6; O2SAT 97
[2018-11-23 13:52] LABS: APPEARANCE,URINE Slightly Cloudy; BILIRUBIN,URINE NEGATIVE (NEGATIVE); COLOR,URINE Yellow; GLUCOSE, URINE (UA) NEGATIVE (NEGATIVE); KETONES,URINE NEGATIVE (NEGATIVE); LEUKOCYTE ESTERASE ,URINE TRACE (NEGATIVE); NITRATE,URINE NEGATIVE (NEGATIVE); OCCULT BLOOD,URINE 1+ (NEG-TRACE); PH,URINE >=9.0; UROBILINOGEN,URINE 0.2 (0.2-1.0 EU)
[2018-11-23 14:01] LABS: BACTERIA TRACE (< 1+)
== END 2018-11-23 14:22 | disposition home or self-care (01) | DRG 696 ==
LOC: ED 11:58
DX: R33.9 Retention of urine, unspecified (principal); T83.091A Other mechanical complication of indwelling urethral catheter, initial encounter
CPT/HCPCS: 81001; 87088; 99282

== ENCOUNTER 2018-11-27 20:42 | Emergency (ER) | payer OTHER ==
[2018-11-27 21:09] VITALS: PULSE 70; RESP 20; TEMP 97.5
[2018-11-27 21:40] LABS: APPEARANCE,URINE Clear; BILIRUBIN,URINE 1+ (NEGATIVE); COLOR,URINE Yellow; GLUCOSE, URINE (UA) NEGATIVE (NEGATIVE); KETONES,URINE TRACE (NEGATIVE); LEUKOCYTE ESTERASE ,URINE 2+ (NEGATIVE); NITRATE,URINE NEGATIVE (NEGATIVE); OCCULT BLOOD,URINE 3+ (NEG-TRACE); PH,URINE 8.5; UROBILINOGEN,URINE 0.2 (0.2-1.0 EU)
[2018-11-27 22:02] LABS: ICTOTEST,URINE NEGATIVE (NEGATIVE)
[2018-11-27 22:03] LABS: EPITHELIAL CELLS 0-3 (SQUAMOUS)
[2018-11-27 22:04] LABS: BACTERIA 2+ (< 1+); CRYSTALS 2+ (0-3 AVE/HPF)
[2018-11-27] MEDS ORDERED: SULFAMETHOXAZOLE/TRIMETHOPRI 800/160 MG PO ONE (22:23)
[2018-11-27] MEDS ORDERED: SULFAMETHOXAZOLE/TRIMETHOPRI 800/160 MG ONE (22:28)
[2018-11-27 22:46] VITALS: BP 138/77; O2SAT 96
== END 2018-11-27 22:35 | disposition home or self-care (01) | DRG 690 ==
LOC: ED 20:42
DX: N30.01 Acute cystitis with hematuria (principal); T83.9XXA Unspecified complication of genitourinary prosthetic device, implant and graft, initial encounter
CPT/HCPCS: 81001; 87088; 87205; 99283; A9270-GY